=== PATIENT | female | born 1945 | race Caucasian/White ===

== ENCOUNTER 2020-03-19 12:46 | Outpatient (REF) | payer MEDICARE, SELFPAY ==
[2020-03-19 14:36] LABS: MANUAL DIFF FLAG NO
[2020-03-19 14:40] LABS: Basophils Absolute Auto 0.1 X10*3/uL (0.0-0.2); Basophils Percent Auto 1.1 % (0-2); Eosinophils Absolute Auto 0.4 X10*3/uL (0.0-0.4); Eosinophils Percent Auto 4.3 % (0-4); Hematocrit 43.8 % (37-47); Hemoglobin 14.1 g/dl (12.0-16.0); Imm Gran Abs Auto 0.06 X10*3/uL (0.00-0.03); Imm Gran Pct Auto 0.6 % (0.0-0.4); Mean Corpuscular HGB Conc 32.2 g/dl (31.0-35.0); Mean Corpuscular Hemoglobin 30.5 pg (27.0-33.0); Mean Corpuscular Volume 94.8 fL (80-98); Mean Platelet Volume 10.3 fL (9.4-12.3); Monocytes Absolute Auto 0.7 X10*3/uL (0.1-1.2); Monocytes Percent Auto 6.5 % (2-11); Neutrophils Absolute Auto 7.9 X10*3/uL (2.0-8.3); Neutrophils Percent Auto 77.5 % (45-73); Platelet Count 286 X10*3/uL (160-400); Red Blood Count 4.62 X10*6/uL (4.20-5.50); Red Cell Distribution Width 13.6 % (11.0-16.0); White Blood Count 10.2 X10*3/uL (4.8-10.8)
[2020-03-19 15:20] LABS: Alanine Aminotransferase 8 U/L (0-31); Albumin Level 4.3 g/dL (3.5-5.0); Alkaline Phosphatase 74 U/L (39-117); Anion Gap 21 (12-20); Aspartate Amino Transferase 16 U/L (5-31); Blood Urea Nitrogen 27 mg/dL (9-16); C Reactive Protein 2.31 mg/dL (< or = 0.50); Calcium 9.5 mg/dL (8.4-10.2); Carbon Dioxide 22 mmol/L (22-29); Chloride 98 mmol/L (96-108); Estimated Glomerular Filt Rate 50; Glucose Random 77 mg/dL (60-115); Iron 46 mcg/dL (30-160); Percent Iron Saturation 23 % (15-50); Sodium 137 mmol/L (135-145); Total Iron Binding Capacity 201 mcg/dL (228-428); Total Protein 8.3 g/dL (6.5-8.0); Unsaturated Iron Binding 155 ug/dL
[2020-03-19 15:32] LABS: Vitamin B12 822 pg/mL (200-900)
[2020-03-19 15:46] LABS: Free T4 (Free Thyroxine) 1.76 ng/dL (0.71-1.85); Thyroid Stimulating Hormone 0.42 mIU/mL (0.32-4.0)
== END 2020-03-19 12:47 | disposition home or self-care (01) ==
LOC: HO.10HDL 12:46
PROVIDERS: Visit Provider Internal Medicine
DX: R41.82 Altered mental status, unspecified (principal); I12.9 Hypertensive chronic kidney disease with stage 1 through stage 4 chronic kidney disease, or unspecified chronic kidney disease; E03.9 Hypothyroidism, unspecified; N18.9 Chronic kidney disease, unspecified; D63.1 Anemia in chronic kidney disease
CPT/HCPCS: 36415; 80053; 82306; 82607; 83540; 84439; 84443; 85025; 86140